=== PATIENT | female | born 1995 | race Hispanic/Latino ===

== ENCOUNTER 2019-06-13 09:30 | Emergency (ER) | payer BC ==
[~2019-06-13] VITALS: Ht 170.2 cm; Wt 65.8 kg
[2019-06-13] MEDS ORDERED: SODIUM CHLORIDE 0.9% 1000ML 1,000 ML IV STA ×3 (09:37→09:55)
[2019-06-13] MEDS ORDERED: AZITHROMYCIN 500MG/NS 250 ML 250 ML IV STA (09:55)
[2019-06-13 10:01] LABS: BASOPHILS % 0.1 % (0.0-1.0); EOSINOPHILS % 0.1 % (0.0-6.0); HEMATOCRIT 40.8 % (34.2-44.1); HEMOGLOBIN 13.6 g/dL (12.0-16.0); LYMPHOCYTES # (AUTO) 0.8 (1.0-3.2); LYMPHOCYTES % 5.7 % (18.0-39.1); MEAN CORPUSCULAR HEMOGLOBIN 29.1 pg (28-32); MEAN CORPUSCULAR HGB CONC 33.3 g/dL (31-35); MEAN CORPUSCULAR VOLUME 87.2 fL (81-99); MONOCYTES # (AUTO) 1.1 (0.2-0.8); MONOCYTES % 7.5 % (4.4-11.3); NEUTROPHILS # (AUTO) 12.6 (2.1-6.9); NEUTROPHILS % 86.1 % (38.7-80.0); PLATELET COUNT 188 x10e3/uL (140-360); RED BLOOD COUNT 4.68 x10e6/uL (3.6-5.1); RED CELL DISTRIBUTION WIDTH 13.2 % (11.7-14.4)
[2019-06-13] MEDS ORDERED: IBUPROFEN 600 MG TAB PO STA (10:22)
[2019-06-13 10:24] LABS: ALANINE AMINOTRANSFERASE 24 IU/L (0-55); ALBUMIN 3.7 g/dL (3.5-5.0); ALKALINE PHOSPHATASE 77 IU/L (40-150); ANION GAP 14.8 mmol/L (8-16); BLOOD UREA NITROGEN 9 mg/dL (7-26); BUN/CREATININE RATIO 11 (6-25); CALCIUM 9.4 mg/dL (8.4-10.2); CARBON DIOXIDE 21 mmol/L (22-29); CHLORIDE 104 mmol/L (98-107); CREATININE, SERUM 0.84 mg/dL (0.57-1.11); EST GLOMERULAR FILTRATION RATE > 60 ML/MIN (60-); GLUCOSE 128 mg/dL (74-118); POTASSIUM 3.8 mmol/L (3.5-5.1); SODIUM 136 mmol/L (136-145)
[2019-06-13] MEDS ORDERED: CEFTRIAXONE SOD 1 GM/NS 50 ML 50 ML IV ONE (10:30)
[2019-06-13 12:19] LABS: CLARITY,URINE HAZY (CLEAR); COLOR,URINE YELLOW (YELLOW); LEUKOCYTE ESTERASE ,URINE NEGATIVE (NEGATIVE); NITRITE,URINE NEGATIVE (NEGATIVE); PROTEIN,URINE DIPSTICK 2+ (NEGATIVE)
[2019-06-13 12:20] LABS: BILIRUBIN,URINE NEGATIVE (NEGATIVE); KETONES,URINE 3+ (NEGATIVE); URINE UROBILINOGEN 0.2 mg/dL (0.2 - 1)
--- NOTE | 2019-06-13 12:25 | Diagnostic Imaging Report ---
CT of the abdomen and pelvis, without contrast. History: Abdominal pain. Comparison: None available. Technique: Multidetector CT scanning of the abdomen and pelvis was performed from the level of the lung bases to the inferior pubic rami without the use of contrast material. Coronal and sagittal multiplanar reformations were obtained. RADIATION DOSE: Total DLP: 781.49 mGy*cm Dose modulation, iterative reconstruction, and/or weight based adjustment of the mA/kV was utilized to reduce the radiation dose to as low as reasonably achievable. FINDINGS: The visualized lungs are clear. The imaged portion of the heart demonstrates no significant abnormalities. The liver is normal in size and attenuation on this noncontrast enhanced examination. The gallbladder is unremarkable. There is no biliary ductal dilatation. The stomach, spleen, pancreas, and bilateral adrenal glands demonstrate an unremarkable sonographic appearance. The kidneys are normal in size and location. Approximately 5 punctate stones are identified within the right kidney. The largest measures 3 mm and is located within the superior pole (axial image 42). There is no intrarenal hydronephrosis present. There is mild fullness of the right renal pelvis and proximal ureter without evidence for ureteral stone. A single punctate nonobstructing stone is identified within the superior pole the left kidney. The left ureter is normal course and caliber. The urinary bladder demonstrates no significant abnormalities. The uterus and adnexa are grossly unremarkable. The abdominal aorta is normal course and caliber. The IVC is normal in caliber. Please note evaluation the bowel is limited without the use of enteric contrast material. The visualized loops of small and large bowel demonstrate no evidence of obstruction or inflammation. The appendix is visualized and appears unremarkable. There is no ascites or intraperitoneal free air. No abnormally enlarged lymph nodes are identified within the abdomen or pelvis. The osseous structures demonstrate no evidence for acute fracture or destructive process. The extraperitoneal soft tissues are unremarkable. IMPRESSION: Bilateral nonobstructive nephrolithiasis as detailed above. Mild fullness noted of the right renal pelvis and proximal ureter without evidence for ureteral stone. Findings may reflect sequela of recently passed stone. An infectious process could have a similar appearance. Recommend correlation with symptomatology and evaluation with urinalysis as clinically indicated. Signed by: Dr. Vivek Yepez MD on 06/13/2019 12:22 PM
[2019-06-13 12:35] LABS: AMORPHOUS SEDIMENT,URINE MODERATE (FEW); BACTERIA,URINE MANY /HPF; EPITHELIAL CELLS,URINE MANY /LPF; WBC,URINE (MAN) >50 /HPF (0-5)
--- NOTE | 2019-06-13 12:44 | Diagnostic Imaging Report ---
EXAM: CHEST 2 VIEWS DATE: 06/13/2019 9:55 AM INDICATION: Fever, shortness of breath COMPARISON: None FINDINGS: The trachea is midline. The lungs are symmetrically expanded without evidence for large focal consolidation, pneumothorax, or significant pleural effusion. The cardiomediastinal silhouette and pulmonary vasculature are within normal limits. No acute osseous abnormality is identified. The surrounding soft tissues are unremarkable. IMPRESSION: No acute cardiopulmonary process identified. Signed by: Dr. Vivek Yepez MD on 06/13/2019 12:41 PM
[2019-06-13 14:08] VITALS: BP 104/66
--- OUTSIDE RECORDS SUMMARY | 2019-06-23 10:27 | XMS REPORT ---
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 Allergies, Adverse Reactions, Alerts This patient has no known allergies or adverse reactions. Medications This patient has no known medications. Encounters Start Date/Time End Date/Time Encounter Type Admission Type Attending Clinicians Care Facility Care Department Encounter ID 2019-06-22 09:55:16 Outpatient [facility] [id number] Results Test Description Test Time Test Comments Text Results Atomic Results Result Comments CHEST 2 VIEWS 2019-06-13 12:40:00 [place] [address] Patient Name: DANAY SHAFER MR #: [id number] : 1995 Age/Sex: 23/F Req #: [id number] Adm Physician: Ordered by: IGNACIO WISEMAN MD, MD Report #: [id number] Location: ER Room/Bed: Procedure: [id number] DX/CHEST 2 VIEWS Exam Date: Exam Time: REPORT STATUS: Signed EXAM: CHEST 2 VIEWS DATE: 06/13/2019 9:55 AM INDICATION: Fever, shortness of breath COMPARISON: None FINDINGS: The trachea is midline. The lungs are symmetrically expanded without evidence for large focal consolidation, pneumothorax, or significant pleural effusion. The cardiomediastinal silhouette and pulmonary vasculature are within normal limits. No acute osseous abnormality is identified. The surrounding soft tissues are unremarkable. IMPRESSION: No acute cardiopulmonary process identified. Signed by: Dr. Vivek Yepez MD on 06/13/2019 12:41 PM Dictated By: VIVEK YEPEZ MD 1241 Transcribed By: FREAD on 06/13/19 1241 COPY TO: IGNACIO WISEMAN CT ABDOMEN/PELVIS WO 2019-06-13 12:20:00 [facility] [address] [place] [address] Patient Name: DANAY SHAFER MR #: [id number] : 1995 Age/Sex: 23/F Req #: [id number] Adm Physician: Ordered by: STEPH MENON BOBBIN COLLECTOR Report #: [id number] Location: ER Room/Bed: Procedure: [id number] CT/CT ABDOMEN/PELVIS WO Exam Date: 06/13/19 Exam Time: 1110 REPORT STATUS: Signed CT of the abdomen and pelvis, without contrast. History: Abdominal pain. Comparison: None available. Technique: Multidetector CT scanning of the abdomen and pelvis was performed from the level of the lung bases to the inferior pubic rami without the use of contrast material. Coronal and sagittal multiplanar reformations were obtained. RADIATION DOSE: Total DLP: 781.49 mGy*cm Dose modulation, iterative reconstruction, and/or weight based adjustment of the mA/kV was utilized to reduce the radiation dose to as low as reasonably achievable. FINDINGS: The visualized lungs are clear. The imaged portion of the heart demonstrates no significant abnormalities. The liver is normal in size and attenuation on this noncontrast enhanced examination. The gallbladder is unremarkable. There is no biliary ductal dilatation. The stomach, spleen, pancreas, and bilateral adrenal glands demonstrate an unremarkable sonographic appearance. The kidneys are normal in size and location. Approximately 5 punctate stones are identified within the right kidney. The largest measures 3 mm and is located within the superior pole (axial image 42). There is no intrarenal hydronephrosis present. There is mild fullness of the right renal pelvis and proximal ureter without evidence for ureteral stone. A single punctate nonobstructing stone is identified within the superior pole the left kidney. The left ureter is normal course and caliber. The urinary bladder demonstrates no significant abnormalities. The uterus and adnexa are grossly unremarkable. The abdominal aorta is normal course and caliber. The IVC is normal in caliber. Please note evaluation the bowel is limited without the use of enteric contrast material. The visualized loops of small and large bowel demonstrate no evidence of obstruction or inflammation. The appendix is visualized and appears unremarkable. There is no ascites or intraperitoneal free air. No abnormally enlarged lymph nodes are identified within the abdomen or pelvis. The osseous structures demonstrate no evidence for acute fracture or destructive process. The extraperitoneal soft tissues are unremarkable. IMPRESSION: Bilateral nonobstructive nephrolithiasis as detailed above. Mild fullness noted of the right renal pelvis and proximal ureter without evidence for ureteral stone. Findings may reflect sequela of recently passed stone. An infectious process could have a similar appearance. Recommend correlation with symptomatology and evaluation with urinalysis as clinically indicated. Signed by: Dr. Vivek Yepez MD on 06/13/2019 12:22 PM Dictated By: VIVEK YEPEZ MD 1222 Transcribed By: FREDA on 06/13/19 1222 COPY TO: STEPH MENON NP URINE CULTURE 2016-09-02 09:49:00 CULTURE (BEAKER) (test hsym=6748) >100,000 col/mL skin donal URINALYSIS W/ [id number] 10:08:00* Test Item Value Reference Range Comments COLOR (BEAKER) (test opym=162) Yellow CLARITY (BEAKER) (test aqvz=154) Clear SPECIFIC GRAVITY UA (BEAKER) (test onux=726) 1.022 1.001-1.035 PH UA (BEAKER) (test nngo=778) 6.5 5.0-8.0 PROTEIN UA (BEAKER) (test mqfn=078) Negative Negative GLUCOSE UA (BEAKER) (test xfgs=070) Negative Negative KETONES UA (BEAKER) (test rgen=405) Negative Negative BILIRUBIN UA (BEAKER) (test tzbm=237) Negative Negative BLOOD UA (BEAKER) (test ooge=025) Negative Negative NITRITE UA (BEAKER) (test tocp=578) Negative Negative LEUKOCYTE ESTERASE UA (BEAKER) (test gpsm=618) Negative Negative UROBILINOGEN UA (BEAKER) (test lzwt=926) 0.2 mg/dL 0.2-1.0 RBC UA (BEAKER) (test hxua=592) 0 /HPF WBC UA (BEAKER) (test idip=985) 2 /HPF BACTERIA (BEAKER) (test ebtk=333) Occasional MUCUS (BEAKER) (test cisr=5875) Rare SQUAMOUS EPITHELIAL (BEAKER) (test mhlm=265) 13 /HPF CALCIUM OXALATE CRYSTALS (BEAKER) (test nfyd=420) Rare SOURCE(BEAKER) (test ubag=4798) SCREEN, [id number] 09:45:00* Test Item Value Reference Range Comments TEST URINE (BEAKER) (test wwxy=806) Negative BASIC METABOLIC [id number] 09:41:00* Test Item Value Reference Range Comments SODIUM (BEAKER) (test vtrn=305) 137 meq/L 136-145 POTASSIUM (BEAKER) (test xmud=795) 3.9 meq/L 3.5-5.1 CHLORIDE (BEAKER) (test ddfw=299) 108 meq/L 98-107 CO2 (BEAKER) (test yinx=962) 21 meq/L 22-29 BLOOD UREA NITROGEN (BEAKER) (test vsfc=058) 11 mg/dL 7-21 CREATININE (BEAKER) (test kjkv=516) 0.67 mg/dL 0.57-1.25 GLUCOSE RANDOM (BEAKER) (test mupu=238) 88 mg/dL 70-105 CALCIUM (BEAKER) (test lykv=235) 9.2 mg/dL 8.4-10.2 EGFR (BEAKER) (test ubch=7753) 109 mL/min/1.73 sq m ESTIMATED GFR IS NOT ACCURATE CREATININE CLEARANCE IN PREDICTING GLOMERULAR FILTRATION RATE. ESTIMATED GFR IS NOT APPLICABLE FOR DIALYSIS PATIENTS. CBC W/PLT COUNT & AUTO [id number] 09:11:00* Test Item Value Reference Range Comments WHITE BLOOD CELL COUNT (BEAKER) (test trdc=393) 5.1 K/ L 4.0-10.0 RED BLOOD CELL COUNT (BEAKER) (test qsit=508) 4.50 M/ L 4.00-5.00 HEMOGLOBIN (BEAKER) (test rbgk=021) 13.2 GM/DL 12.0-15.0 HEMATOCRIT (BEAKER) (test wvfi=877) 40.2 % 36.0-45.0 MEAN CORPUSCULAR VOLUME (BEAKER) (test kpgr=176) 89.3 fL 82.0-99.0 MEAN CORPUSCULAR HEMOGLOBIN (BEAKER) (test lnbg=846) 29.4 pg 27.0-33.0 MEAN CORPUSCULAR HEMOGLOBIN CONC (BEAKER) (test dacq=958) 32.9 GM/DL 32.0-36.0 RED CELL DISTRIBUTION WIDTH (BEAKER) (test qdhw=880) 13.2 % 10.3-14.2 PLATELET COUNT (BEAKER) (test trka=392) 187 K/CU MM 150-430 MEAN PLATELET VOLUME (BEAKER) (test ghae=373) 9.5 fL 6.5-10.5 NUCLEATED RED BLOOD CELLS (BEAKER) (test tbob=302) 0 /100 WBC 0-0 NEUTROPHILS RELATIVE PERCENT (BEAKER) (test mgyq=702) 49 % LYMPHOCYTES RELATIVE PERCENT (BEAKER) (test rkrs=301) 38 % MONOCYTES RELATIVE PERCENT (BEAKER) (test xgst=474) 10 % EOSINOPHILS RELATIVE PERCENT (BEAKER) (test rvbn=649) 2 % BASOPHILS RELATIVE PERCENT (BEAKER) (test cguc=853) 1 % NEUTROPHILS ABSOLUTE COUNT (BEAKER) (test rdpp=284) 2.48 K/ L 1.80-8.00 LYMPHOCYTES ABSOLUTE COUNT (BEAKER) (test agsm=756) 1.91 K/ L 1.48-4.50 MONOCYTES ABSOLUTE COUNT (BEAKER) (test slwu=095) 0.51 K/ L 0.00-1.30 EOSINOPHILS ABSOLUTE COUNT (BEAKER) (test safg=785) 0.13 K/ L 0.00-0.50 BASOPHILS ABSOLUTE COUNT (BEAKER) (test meya=860) 0.06 K/ L 0.00-0.20 0.00
== END 2019-06-13 14:02 | disposition home or self-care (01) ==
LOC: ER 09:30
DX: N10 Acute pyelonephritis (principal); R31.9 Hematuria, unspecified; R05 Cough
CPT/HCPCS: 36415; 71046; 74176; 80053; 81001; 83605; 84702; 85025; 87040; 87086; 87186; 99284; J0456; J0696; J7030